=== PATIENT | female | born 1980 | race Caucasian/White ===

== ENCOUNTER 2019-05-14 14:15 | Outpatient (CLI) | payer OTHER, SELFPAY ==
--- NOTE | 2019-05-14 14:26 | XR_ITS ---
WS: [id number] CERVICAL SPINE 3 VIEWS HISTORY: Paresthesias/FALL COMPARISON: None available. C2 retrolisthesis by 1.8 mm. Otherwise vertebral bodies are normally aligned. There is slight tilting of the head to the RIGHT which could be due to spasm. No fracture. Disc spaces and vertebral body heights are well-maintained. Soft tissues are normal. XR/XR cervical spine 2V* [id number] IMPRESSION: 1. No cervical spine fracture identified. For further evaluation CT cervical s pine can be obtained. 2. Less than 2 mm retrolisthesis of C2.
== END 2019-05-14 14:16 | disposition home or self-care (01) ==
LOC: RAD 14:23
PROVIDERS: Family Provider Nurse Practitioner Family; PCP Nurse Practitioner Family; Visit Provider Nurse Practitioner Family
DX: R20.2 Paresthesia of skin (principal)
CPT/HCPCS: 72040

== ENCOUNTER 2019-06-04 09:57 | Outpatient (CLI) | payer OTHER, SELFPAY ==
--- NOTE | 2019-06-04 10:02 | CT_ITS ---
WS: [id number] CT CERVICAL SPINE TECHNIQUE: Noncontrast CT of the cervical spine with coronal and sagittal reformatted images. CLINICAL INFORMATION: NECK PAIN,RETROLISTHESIS CERVICAL SPINE COMPARISON: None. DLP: 1056.[address] scans at [facility] use at least one of these dose optimization techniques: automat ed exposure control; mA and/or kV adjustment per patient size (includes targeted exams where dose is matched to clinical indication); or iterative reconstruction. FINDINGS: Straightening of the normal cervical lordosis. C2 appears normally aligned today. No high-grade centr al canal narrowing. Minimal anterolisthesis C3 on C4. Disc space heights are well preserved. C2-C3: Normal. C3-C4: Normal C4-C5: No significant disc bulging. Spinal canal and foramen are patent. Mild facet arthropathy. C5-C6: Tiny shallow central protrusion. Slight effacement of ventral thecal sac with mild central can al stenosis. Mild left and no significant right foraminal narrowing. C6-C7: Shallow central disc protrusion with slight contact of the cervical cord. Mild central canal s tenosis. Mild left and no significant right foraminal narrowing. C7-T1: No significant disc bulging. Spinal canal and foramen are patent. Visualized posterior nasopharynx: Normal. Prevertebral soft tissues: Normal. CT/CT cervical spin wo con* [id number] IMPRESSION: 1. Straightening of the normal cervical lordosis. No high-grade central canal stenosis. 2. Shallow central protrusions C5-C6 and C6-C7 with mild central canal stenosi s. 3. Mild foraminal narrowing more prominent at left C5-C6.
== END 2019-06-04 09:58 | disposition home or self-care (01) ==
LOC: RADWPI 10:01
PROVIDERS: Family Provider Nurse Practitioner Family; PCP Nurse Practitioner Family; Visit Provider Nurse Practitioner Family
DX: M50.222 Other cervical disc displacement at C5-C6 level (principal); M54.2 Cervicalgia; M43.12 Spondylolisthesis, cervical region
CPT/HCPCS: 72125

== ENCOUNTER → 2019-06-24 13:48 | Outpatient (BNVA) | payer OTHER, SELFPAY | PROVIDERS: Family Provider Nurse Practitioner Family; PCP Nurse Practitioner Family; Visit Provider Family Medicine | DX: R05 Cough (principal) | CPT/HCPCS: 87804 ==

== ENCOUNTER → 2019-09-22 11:02 | Outpatient (BNVA) | payer OTHER, SELFPAY | PROVIDERS: Family Provider Nurse Practitioner Family; PCP Nurse Practitioner Family; Visit Provider Nurse Practitioner Family | DX: N39.0 Urinary tract infection, site not specified (principal); R31.9 Hematuria, unspecified; J30.89 Other allergic rhinitis; H65.191 Other acute nonsuppurative otitis media, right ear | CPT/HCPCS: 81000; 81025; 87086 ==

== ENCOUNTER → 2020-06-23 14:11 | Outpatient (BNVA) | payer SELFPAY | PROVIDERS: Family Provider Nurse Practitioner Family; PCP Nurse Practitioner Family; Visit Provider Obstetrics & Gynecology | DX: Z12.4 Encounter for screening for malignant neoplasm of cervix (principal); N89.8 Other specified noninflammatory disorders of vagina | CPT/HCPCS: 88175 ==

== ENCOUNTER → 2021-07-03 14:53 | Outpatient (BNVA) | payer OTHER, SELFPAY | PROVIDERS: Family Provider Nurse Practitioner Family; PCP Nurse Practitioner Family; Visit Provider Nurse Practitioner | DX: J02.0 Streptococcal pharyngitis (principal) | CPT/HCPCS: 87880 ==

== ENCOUNTER → 2025-03-25 15:02 | Outpatient (BNVA) | payer MEDICAID, SELFPAY | PROVIDERS: Family Provider Nurse Practitioner Family; PCP Nurse Practitioner Family; Visit Provider Nurse Practitioner Women's Health | DX: Z12.4 Encounter for screening for malignant neoplasm of cervix (principal); R53.83 Other fatigue; Z78.9 Other specified health status | CPT/HCPCS: 82306; 84443; 87624 ==

== ENCOUNTER 2025-04-10 11:27 | Outpatient (CLI) | payer MEDICAID, SELFPAY ==
--- NOTE | 2025-04-10 11:32 | MM_ITS ---
WS: [id number] SCREENING DIGITAL BREAST TOMOSYNTHESIS MAMMOGRAM WITH CAD HISTORY: ANNUAL SCREEN COMPARISON: None available. Bilateral CC and MLO with tomosynthesis and synthetic mammography submitted. Computer aided detection analyzed. Breast composition: The breasts are heterogeneously dense, which may obscure small masses. Well-circumscribed high density mass in the inferior central RIGHT breast near 5-6 o'clock. The remaining breasts are negative. No areas of distortion or suspicious grouping of calcifications. MM/MM [facility] tomosynthesis [id number] IMPRESSION: BI-RADS: 0 - Incomplete: Need additional imaging evaluation FOLLOW UP: Need Additional Imaging Recommendation: Limited RIGHT breast ultrasound, 5-6 o'clock middle depth.
== END 2025-04-10 11:28 | disposition home or self-care (01) ==
LOC: RAD 11:28
PROVIDERS: Family Provider Nurse Practitioner Family; PCP Nurse Practitioner Family; Visit Provider Nurse Practitioner Women's Health
DX: Z12.31 Encounter for screening mammogram for malignant neoplasm of breast (principal); R53.83 Other fatigue; Z78.9 Other specified health status; R92.333 Mammographic heterogeneous density, bilateral breasts; N63.14 Unspecified lump in the right breast, lower inner quadrant
CPT/HCPCS: 77063; 77067

== ENCOUNTER 2025-04-22 12:43 | Outpatient (CLI) | payer MEDICAID, SELFPAY ==
--- NOTE | 2025-04-22 12:45 | US_ITS ---
WS: [id number] ULTRASOUND RIGHT BREAST, limited HISTORY: Follow-up screening mammogram. COMPARISON: 04/10/2025 TECHNIQUE: 2-D and Doppler. Ovoid hypoechoic mass measures 4 x 3 x 3 mm in the RIGHT breast at 6:00, 3 cm from the nipple. This corresponds to the mammographic abnormality. There are a few low-level echoes but this is most consistent with a benign cyst. There is no increased vascularity. US/US breast RT limited* [id number] IMPRESSION: BI-RADS: 2 - Benign FOLLOW-UP: 1 Year Follow-up Benign cyst RIGHT breast. Return to annual screening mammography.
== END 2025-04-22 12:44 | disposition home or self-care (01) ==
LOC: RAD 12:45
PROVIDERS: Family Provider Nurse Practitioner Family; PCP Nurse Practitioner Family; Visit Provider Nurse Practitioner Women's Health
DX: R92.8 Other abnormal and inconclusive findings on diagnostic imaging of breast (principal); N63.13 Unspecified lump in the right breast, lower outer quadrant; N60.01 Solitary cyst of right breast
CPT/HCPCS: 76642